=== PATIENT | male | born 1975 | race Caucasian/White ===

== ENCOUNTER 2018-08-25 16:32 | Inpatient (IN) | payer OTHER ==
[~2018-08-25] VITALS: Ht 170.2 cm; Wt 67.9 kg
[~2018-08-25 16:32] MED LIST: ANTIDIARRHEAL PO; CHOLESTEROL MED PO
[2018-08-25] MEDS ORDERED: ACETAMINOPHEN 325 MG TAB PO PRN ×2 (17:00→19:00)
[2018-08-25] MEDS ORDERED: ONDANSETRON 4 MG INJ IV PRN ×2 (17:00→19:00)
--- NOTE | 2018-08-25 18:38 | HP ---
Date/Time of Note Date/Time of Note DATE: 08/25/18 TIME: 18:31 Assessment/Plan VTE Prophylaxis SCD applied (from Nsg): Yes Pharmacological prophylaxis: NA/contraindicated Pharm contraindication: bleeding Assessment/Plan Hospital Course 1. Colitis secondary to IBD Patient with a reported history of ulcerative colitis, patient stopped taking his medications 6 months ago reportedly after his insurance was changed IV steroids with methylprednisolone 20 mg IV every 8 hours GI consultation with Dr. Armando who has seen patient in the past Hemoglobin has been stable HPI/ROS Admit Date/Time Admit Date/Time August 25, 2018 Hx of Present Illness Patient is a 43-year-old male with a history of inflammatory bowel disease, likely UC. Patient does have a history of colonoscopy with a diagnosis of IBD. Patient was on medications for ulcerative colitis but states that his insurance was changed and that he was unable to obtain his medication. Patient reports that 2 months ago he began to have bloody diarrhea which became worse over the last several days. Patient reports having approximately 3 bloody bowel movements per day. Patient presented to an outside hospital where CT abdomen showed diffuse colitis, patient was transferred due to capitation. Patient's hemoglobin was stable at outside hospital. ROS Constitutional: no complaints, improved Eyes: no complaints ENT: no complaints Respiratory: no complaints Cardiovascular: no complaints Gastrointestinal: blood, diarrhea Genitourinary: no complaints Musculoskeletal: no complaints Skin: no complaints Neurologic: no complaints Endocrine: no complaints Lymphatic: no complaints Psychological: no complaints, nl mood/affect Immunologic: no complaints PMH/Family/Social Past Medical History Inflammatory bowel disease Medications Current Medications Ondansetron HCl (Zofran Inj) 4 mg BRIDGE ORDER PRN IV NAUSEA/VOMITING; Start 08/25/18 at 17:00; Stop 08/26/18 at 16:59 Acetaminophen (Tylenol Tab) 650 mg ER BRIDGE PRN PO .MILD PAIN 1-3 OR TEMP; Start 08/25/18 at 17:00; Stop 08/26/18 at 16:59 Coded Allergies: No Known Allergy (Unverified , 10/11/13) Past Surgical History Past Surgical Hx: no surgical history Family History Significant Family History: no pertinent family hx Social History Alcohol Use: rarely Smoking Status: Never smoker Drug Use: none Exam/Review of Systems Vital Signs Vitals Vital Signs Date Temp Pulse Resp B/P (MAP) Pulse Ox O2 O2 Flow FiO2 Time Delivery Rate 08/25/18 98.6 76 16 104/62 98 16:40 (76) Exam Constitutional: alert, oriented Respiratory: clear to auscultation Cardiovascular: regular rate and rhythm Gastrointestinal: soft; No distended Musculoskeletal: nl extremities to inspection BECCA NAPOLES August 25, 2018 18:38
[2018-08-25] MEDS ORDERED: ERGO500013 PO (18:43)
[2018-08-25] MEDS ORDERED: VIT E PO (18:45)
[2018-08-25] MEDS ORDERED: morphine 2 MG INJ IV PRN (19:00)
[2018-08-25] MEDS ORDERED: ZOLPIDEM 5 MG TAB PO PRN (19:00)
[2018-08-25] MEDS ORDERED: NACL 0.9% 3 ML SYG IV SCH (19:00)
[2018-08-25] MEDS ORDERED: HYDROCODONE/APAP (5/325) TAB PO PRN (19:00)
--- NOTE | 2018-08-25 19:08 | ERD ---
ER Documentation Chief Complaint Chief Complaint SENT FROM [facility]. DIRECT ADMIT NO BEDS. DX COLITIS HPI Patient is a 43-year-old male who presents for acute ulcerative colitis. The patient was diagnosed at [place] emergency department. He is capitated to [facility] and was accepted for admission by the panel team. He came to the emergency department here by ambulance because there is no medical surgical beds available. ROS All systems reviewed and are negative except as per history of present illness. Medications Home Meds Reported Medications [Vit E] No Conflict Check, 1 TAB PO DAILY 08/25/18 Ergocalciferol (Vitamin D2) (VITAMIN D2) 50,000 Unit Capsule, [address] UNIT PO Q MON, CAP 08/25/18 Discontinued Reported Medications [Cholesterol Med] No Conflict Check, PO 10/11/13 [Antidiarrheal] No Conflict Check, PO 10/11/13 Allergies Allergies: Coded Allergies: No Known Allergy (Unverified , 08/25/18) PMhx/Soc History of Surgery: Yes (RIGHT FACIAL FRACTURE SURGERY ) Anesthesia Reaction: No Hx Neurological Disorder: No Hx Respiratory Disorders: No Hx Cardiac Disorders: No Hx Psychiatric Problems: No Hx Miscellaneous Medical Probl: No Hx Alcohol Use: No Hx Substance Use: No Hx Tobacco Use: No Smoking Status: Never smoker FmHx Family History: No diabetes Physical Exam Vitals Vital Signs Date Temp Pulse Resp B/P (MAP) Pulse Ox O2 O2 Flow FiO2 Time Delivery Rate 08/25/18 98.6 76 16 104/62 98 16:40 (76) Physical Exam Const: No acute distress Head: Atraumatic Eyes: Normal Conjunctiva ENT: Normal External Ears, Nose and Mouth. Neck: Full range of motion. No meningismus. Resp: Clear to auscultation bilaterally Cardio: Regular rate and rhythm, no murmurs Abd: Abdominal pain Skin: No petechiae or rashes Back: No midline or flank tenderness Ext: No cyanosis, or edema Neur: Awake and alert Psych: Normal Mood and Affect Results 24 hrs Current Medications Medications Dose Sig/Adeola Start Time Status Last (Trade) Ordered Route PRN Stop Time Admin Dose Reason Admin Ondansetron 4 mg BRIDGE ORDER 08/25/18 HCl (Zofran PRN IV 17:00 08/26/18 Inj) NAUSEA/VOMITI 16:59 NG 650 mg ER BRIDGE 08/25/18 Acetaminophen PRN PO 17:00 08/26/18 (Tylenol .MILD PAIN 16:59 Tab) 1-3 OR TEMP Sodium 1,000 ml @ Q10H IV 08/25/18 Chloride 100 mls/hr 18:38 IV Flush 3 ml PER 08/25/18 (NS 3 ml) PROTOCOL IV 19:00 Ondansetron 4 mg Q6H PRN 08/25/18 HCl (Zofran IV 19:00 Inj) NAUSEA/VOMITI NG 650 mg Q6H PRN 08/25/18 Acetaminophen PO .PAIN 1-3 19:00 (Tylenol OR TEMP Tab) 1 tab Q6H PRN 08/25/18 Acetaminophen PO .MOD PAIN 19:00 / 4-6 Hydrocodone Bitart ([place] (5/325)) Morphine 2 mg Q4H PRN 08/25/18 Sulfate IV .SEVERE 19:00 (morphine) PAIN 7-10 Zolpidem 5 mg QHS PRN 08/25/18 Tartrate PO .INSOMNIA 19:00 (Ambien) 40 mg Q8 IV 08/25/18 Methylprednis 22:00 olone Sodium Succinate (Solu-Medrol) Procedures/MDM Patient is a 43-year-old male presents for acute ulcerative colitis. He was transferred to the emergency department because there were no beds available on the [facility] floor. He is capitated to our hospital. I spoke with the panel team for admission. They have [facility] accepted him and I do not not believe that he requires further work-up at this time. Departure Diagnosis: Primary Impression: Ulcerative colitis Ulcerative colitis location: unspecified ulcerative colitis location Digestive disease complication type: unspecified complication Qualified Codes: K51.919 - Ulcerative colitis, unspecified with unspecified complications Additional Impression: Abdominal pain Abdominal location: unspecified location Qualified Codes: R10.9 - Unspecified abdominal pain Condition: AZRA Kendrick MD August 25, 2018 19:08
[2018-08-25] MEDS: SOD CHLORIDE 0.9% 1,000 ML IV SCH ×2 (19:59→22:30)
[2018-08-25 21:50] VITALS: Ht 170.2 cm; Wt 67.9 kg
[2018-08-25 22:00] VITALS: BP 101/56; PULSE 79; RESP 18
[2018-08-25] MEDS: METHYLPREDNISOLONE 40 MG INJ IV SCH (22:30)
[2018-08-26 03:09] VITALS: BP 96/56; PULSE 60; RESP 16
[2018-08-26] MEDS: METHYLPREDNISOLONE 40 MG INJ IV SCH ×3 (05:44→21:24)
[2018-08-26] MEDS: SOD CHLORIDE 0.9% 1,000 ML IV SCH ×2 (07:15→18:58)
[2018-08-26 07:57] VITALS: BP 105/64; PULSE 61; RESP 18
--- NOTE | 2018-08-26 09:25 | CONS ---
Assessment/Plan Assessment/Plan Hospital Course (Demo Recall) Summary Assessment and Plan: Assessment: Colitis likely 2/2 to UC flare History of ulcerative colitis History of hyperplastic colon polyps Plan: Agree with Solu-Medrol 20 mg IV every 8 hours We will start mesalamine 800 mg p.o. 3 times daily We will additionally check ESR/CRP for baseline Start clear liquid diet Currently no plan for colonoscopy given known hx of IBD- pt was dx with UC- will need SB imaging at some point confirm UC vs Crohn's Further conditions based on clinical course Patient seen in collaboration with Dr. Armando CC: LIZZIE RAMANDO MD ; Consultation Date/Type/Reason Admit Date/Time August 25, 2018 Date of Consultation: August 26, 2018 Type of Consult GI Reason for Consultation UC flare Date/Time of Note DATE: 08/26/18 TIME: 08:45 Hx of Present Illness This is a 43-year-old male with past medical history of ulcerative colitis last colonoscopy was completed in 2017 at that time patient noted to have colon po lyps as well biopsies came back as hyperplastic. Who was seen in our clinic and started on mesalamine p.o. medication. However due to insurance changes patient was no longer able to follow-up and stopped taking medication about 6 to 7 months ago. He presented to [facility] with complaints of tenesmus and bloody diarrhea going up to 5-8 times per day and a noted 10 pound weight loss over the past 2 months.. There he had a CT abdomen pelvis with contrast which revealed diffuse colitis with possible areas in the severely inflamed area was noted to be in the cecum and ascending colon, cyst or small hemangioma in the tip of the right lobe of the liver. He was transferred to [facility] for insurance reasons. Here patient was started on IV steroids 20 mg every 8 hours. He is currently resting in bed states diarrhea has improved with less blood noted he currently complains of tenesmus and abdominal cramping. We will plan to restart mesalamine we will additionally order stool studies to rule out C. difficile versus other. Start patient on a clear liquid diet. Review of Systems: A 12 system, review was conducted and is negative except as noted in the HPI or here. Past Medical History Home Meds Reported Medications [Vit E] No Conflict Check, 1 TAB PO DAILY 08/25/18 Ergocalciferol (Vitamin D2) (VITAMIN D2) 50,000 Unit Capsule, 25904 UNIT PO Q MON, CAP 08/25/18 Discontinued Reported Medications [Cholesterol Med] No Conflict Check, PO 10/11/13 [Antidiarrheal] No Conflict Check, PO 10/11/13 Medications Current Medications Ondansetron HCl (Zofran Inj) 4 mg BRIDGE ORDER PRN IV NAUSEA/VOMITING; Start 08/25/18 at 17:00; Stop 08/26/18 at 16:59 Acetaminophen (Tylenol Tab) 650 mg ER BRIDGE PRN PO .MILD PAIN 1-3 OR TEMP; Start 08/25/18 at 17:00; Stop 08/26/18 at 16:59 Sodium Chloride 1,000 ml @ 100 mls/hr Q10H IV Last administered on 08/26/18at 07:15; Admin Dose 100 MLS/HR; Start 08/25/18 at 18:38 IV Flush (NS 3 ml) 3 ml PER PROTOCOL IV ; Start 08/25/18 at 19:00 Ondansetron HCl (Zofran Inj) 4 mg Q6H PRN IV NAUSEA/VOMITING; Start 08/25/18 at 19:00 Acetaminophen (Tylenol Tab) 650 mg Q6H PRN PO .PAIN 1-3 OR TEMP; Start 08/25/18 at 19:00 Acetaminophen/ Hydrocodone Bitart ([place] (5/325)) 1 tab Q6H PRN PO .MOD PAIN 4- 6; Start 08/25/18 at 19:00 Morphine Sulfate (morphine) 2 mg Q4H PRN IV .SEVERE PAIN 7-10; Start 08/25/18 at 19:00 Zolpidem Tartrate (Ambien) 5 mg QHS PRN PO .INSOMNIA; Start 08/25/18 at 19:00 Methylprednisolone Sodium Succinate (Solu-Medrol) 40 mg Q8 IV Last administered on 08/26/18at 05:44; Admin Dose 40 MG; Start 08/25/18 at 22:00 Allergies: Coded Allergies: No Known Allergy (Unverified , 08/25/18) Past Surgical History Past Surgical Hx: no surgical history Social History Alcohol Use: rarely Smoking Status: Former smoker Drug Use: none Exam/Review of Systems Exam Vitals Vital Signs Date Temp Pulse Resp B/P (MAP) Pulse Ox O2 O2 Flow FiO2 Time Delivery Rate 08/26/18 97.5 61 18 105/64 97 Room Air 07:57 (78) Exam PHYSICAL EXAMINATION: GENERAL: Alert & oriented x 3, in no acute distress SKIN: No lesions HEAD: Normocephalic, atraumatic, no tenderness. EYES: Pupils equal reactive to light and accommodation, no discharge. EARS/NOSE AND THROAT: Ears normal, nose normal. NECK: Supple, no masses, thyroid normal. CHEST: Inspection within normal limits. CARDIOVASCULAR: Heart: Regular rate and rhythm RESPIRATORY: Lungs clear to auscultation GASTROINTESTINAL AND LIVER: Abdomen: Soft, generalized tenderness, non- distended, no hernias, no masses, no organomegaly, no ascites, no guarding, no rebound tenderness, normoactive bowel sounds. Rectal: Deferred. EXTREMITIES: No cyanosis, clubbing or edema. Results Result Diagram: 08/26/18 0439 08/26/18 0439 Results 24hrs Laboratory Tests Test 08/26/18 04:39 White Blood Count 10.5 Red Blood Count 4.58 L Hemoglobin 12.7 L Hematocrit 39.1 L Mean Corpuscular Volume 85.4 Mean Corpuscular Hemoglobin 27.7 L Mean Corpuscular Hemoglobin Concent 32.5 Red Cell Distribution Width 13.8 Platelet Count 472 H Mean Platelet Volume 9.3 Immature Granulocytes % 0.400 Neutrophils % 84.8 H Lymphocytes % 12.5 L Monocytes % 2.2 Eosinophils % 0.0 Basophils % 0.1 Nucleated Red Blood Cells % 0.0 Immature Granulocytes # 0.040 H Neutrophils # 8.9 H Lymphocytes # 1.3 Monocytes # 0.2 L Eosinophils # 0.0 Basophils # 0.0 Nucleated Red Blood Cells # 0.0 Sodium Level 142 Potassium Level 4.8 Chloride Level 104 Carbon Dioxide Level 29 Anion Gap 9 Blood Urea Nitrogen 17 Creatinine 0.55 L Est Glomerular Filtrat Rate mL/min > 60 Glucose Level 139 Hemoglobin A1c 5.5 Calcium Level 9.4 Phosphorus Level 4.5 Magnesium Level 2.3 Medications Medication Current Medications Ondansetron HCl (Zofran Inj) 4 mg BRIDGE ORDER PRN IV NAUSEA/VOMITING; Start 08/25/18 at 17:00; Stop 08/26/18 at 16:59 Acetaminophen (Tylenol Tab) 650 mg ER BRIDGE PRN PO .MILD PAIN 1-3 OR TEMP; Start 08/25/18 at 17:00; Stop 08/26/18 at 16:59 Sodium Chloride 1,000 ml @ 100 mls/hr Q10H IV Last administered on 08/26/18at 07:15; Admin Dose 100 MLS/HR; Start 08/25/18 at 18:38 IV Flush (NS 3 ml) 3 ml PER PROTOCOL IV ; Start 08/25/18 at 19:00 Ondansetron HCl (Zofran Inj) 4 mg Q6H PRN IV NAUSEA/VOMITING; Start 08/25/18 at 19:00 Acetaminophen (Tylenol Tab) 650 mg Q6H PRN PO .PAIN 1-3 OR TEMP; Start 08/25/18 at 19:00 Acetaminophen/ Hydrocodone Bitart ([place] (5/325)) 1 tab Q6H PRN PO .MOD PAIN 4- 6; Start 08/25/18 at 19:00 Morphine Sulfate (morphine) 2 mg Q4H PRN IV .SEVERE PAIN 7-10; Start 08/25/18 at 19:00 Zolpidem Tartrate (Ambien) 5 mg QHS PRN PO .INSOMNIA; Start 08/25/18 at 19:00 Methylprednisolone Sodium Succinate (Solu-Medrol) 40 mg Q8 IV Last administered on 08/26/18at 05:44; Admin Dose 40 MG; Start 08/25/18 at 22:00 BERNAROD ANGULO August 26, 2018 08:55
[2018-08-26] MEDS: MESALAMINE (EC) 400 MG CAP PO SCH ×2 (12:17→21:24)
--- NOTE | 2018-08-26 14:04 | PN ---
Date/Time of Note Date/Time of Note DATE: 08/26/18 TIME: 14:01 Assessment/Plan VTE Prophylaxis Risk score (from Nsg)>0 risk: 1 Pharmacological prophylaxis: NA/contraindicated Pharm contraindication: low risk/ambulating Lines/Catheters IV Catheter Type (from Nrsg): Peripheral IV Assessment/Plan Hospital Course 1. Colitis secondary to IBD Patient with a reported history of ulcerative colitis, patient stopped taking his medications 6 months ago reportedly after his insurance was changed IV steroids with Solu-Medrol 20 mg IV every 8 hours GI consultation with Dr. Armando appreciated, patient restarted on mesalamine Hemoglobin has been stable assistant portfolio manager to arrange for mesalamine prior to DC Result Diagram: 08/26/18 0439 08/26/18 0439 Results 24hrs Laboratory Tests Test 08/26/18 03:00 08/26/18 04:39 08/26/18 06:00 Erythrocyte Sedimentation Rate 29.0 H White Blood Count 10.5 Red Blood Count 4.58 L Hemoglobin 12.7 L Hematocrit 39.1 L Mean Corpuscular Volume 85.4 Mean Corpuscular Hemoglobin 27.7 L Mean Corpuscular Hemoglobin Concent 32.5 Red Cell Distribution Width 13.8 Platelet Count 472 H Mean Platelet Volume 9.3 Immature Granulocytes % 0.400 Neutrophils % 84.8 H Lymphocytes % 12.5 L Monocytes % 2.2 Eosinophils % 0.0 Basophils % 0.1 Nucleated Red Blood Cells % 0.0 Immature Granulocytes # 0.040 H Neutrophils # 8.9 H Lymphocytes # 1.3 Monocytes # 0.2 L Eosinophils # 0.0 Basophils # 0.0 Nucleated Red Blood Cells # 0.0 Sodium Level 142 Potassium Level 4.8 Chloride Level 104 Carbon Dioxide Level 29 Anion Gap 9 Blood Urea Nitrogen 17 Creatinine 0.55 L Est Glomerular Filtrat Rate mL/min > 60 Glucose Level 139 Hemoglobin A1c 5.5 Calcium Level 9.4 Phosphorus Level 4.5 Magnesium Level 2.3 C-Reactive Protein 2.1 H Subjective 24 Hr Interval Summary Constitutional: no complaints Exam/Review of Systems Exam Vitals Vital Signs Date Temp Pulse Resp B/P (MAP) Pulse Ox O2 O2 Flow FiO2 Time Delivery Rate 08/26/18 97.5 61 18 105/64 97 Room Air 07:57 (78) Constitutional: alert, oriented Respiratory: clear to auscultation Cardiovascular: regular rate and rhythm Gastrointestinal: soft; No distended Musculoskeletal: nl extremities to inspection Results Results 24hrs Laboratory Tests Test 08/26/18 03:00 08/26/18 04:39 08/26/18 06:00 Erythrocyte Sedimentation Rate 29.0 H White Blood Count 10.5 Red Blood Count 4.58 L Hemoglobin 12.7 L Hematocrit 39.1 L Mean Corpuscular Volume 85.4 Mean Corpuscular Hemoglobin 27.7 L Mean Corpuscular Hemoglobin Concent 32.5 Red Cell Distribution Width 13.8 Platelet Count 472 H Mean Platelet Volume 9.3 Immature Granulocytes % 0.400 Neutrophils % 84.8 H Lymphocytes % 12.5 L Monocytes % 2.2 Eosinophils % 0.0 Basophils % 0.1 Nucleated Red Blood Cells % 0.0 Immature Granulocytes # 0.040 H Neutrophils # 8.9 H Lymphocytes # 1.3 Monocytes # 0.2 L Eosinophils # 0.0 Basophils # 0.0 Nucleated Red Blood Cells # 0.0 Sodium Level 142 Potassium Level 4.8 Chloride Level 104 Carbon Dioxide Level 29 Anion Gap 9 Blood Urea Nitrogen 17 Creatinine 0.55 L Est Glomerular Filtrat Rate mL/min > 60 Glucose Level 139 Hemoglobin A1c 5.5 Calcium Level 9.4 Phosphorus Level 4.5 Magnesium Level 2.3 C-Reactive Protein 2.1 H Medications Medication Current Medications Sodium Chloride 1,000 ml @ 100 mls/hr Q10H IV Last administered on 08/26/18at 0 7:15; Admin Dose 100 MLS/HR; Start 08/25/18 at 18:38 IV Flush (NS 3 ml) 3 ml PER PROTOCOL IV ; Start 08/25/18 at 19:00 Ondansetron HCl (Zofran Inj) 4 mg Q6H PRN IV NAUSEA/VOMITING; Start 08/25/18 at 19:00 Acetaminophen (Tylenol Tab) 650 mg Q6H PRN PO .PAIN 1-3 OR TEMP; Start 08/25/18 at 19:00 Acetaminophen/ Hydrocodone Bitart ([place] (5/325)) 1 tab Q6H PRN PO .MOD PAIN 4- 6; Start 08/25/18 at 19:00 Morphine Sulfate (morphine) 2 mg Q4H PRN IV .SEVERE PAIN 7-10; Start 08/25/18 at 19:00 Zolpidem Tartrate (Ambien) 5 mg QHS PRN PO .INSOMNIA; Start 08/25/18 at 19:00 Mesalamine (Delzicol Dr) 800 mg TID PO Last administered on 08/26/18at 12:17; Admin Dose 800 MG; Start 08/26/18 at 11:00 Methylprednisolone Sodium Succinate (Solu-Medrol) 20 mg Q8 IV ; Start 08/26/18 at 14:00 BECCA NAPOLES August 26, 2018 14:03
[2018-08-26 15:49] VITALS: BP 99/70; PULSE 66; RESP 18
[2018-08-26 19:44] VITALS: BP 103/56; PULSE 70; RESP 18
[2018-08-27 01:38] VITALS: BP 94/55; PULSE 60; RESP 18
[2018-08-27] MEDS: SOD CHLORIDE 0.9% 1,000 ML IV SCH (05:01)
[2018-08-27] MEDS: METHYLPREDNISOLONE 40 MG INJ IV SCH ×2 (05:31→13:19)
[2018-08-27 07:42] VITALS: BP 107/61; PULSE 58; RESP 18
[2018-08-27] MEDS: MESALAMINE (EC) 400 MG CAP PO SCH ×2 (09:05→13:18)
[2018-08-27] MEDS ORDERED: ASA400 PO (10:31)
--- NOTE | 2018-08-27 10:33 | PDOCDIS ---
Discharge Instructions CONDITION [id number] Patient Condition: [id number] Good HOME CARE INSTRUCTIONS: [id number] Diet Instructions: [id number] Regular ACTIVITY: [id number] Activity Restrictions: [id number] No Restrictions FOLLOW UP/APPOINTMENTS Follow-up Plan FOLLOW UP WITH YOUR PCP AND THERMODYNAMICS ENGINEER BECCA NAPOLES August 27, 2018 10:33
--- NOTE | 2018-08-27 13:00 | PN ---
Date/Time of Note Date/Time of Note DATE: 08/27/18 TIME: 12:54 Assessment/Plan VTE Prophylaxis Risk score (from Ns)>0 risk: 1 SCD applied (from Ns): Yes Pharmacological prophylaxis: NA/contraindicated Pharm contraindication: bleeding Lines/Catheters IV [facility]ter [facility] (from [facility]): Peripheral IV Assessment/Plan Assessment/Plan Assessment: Colitis likely 2/2 to UC flare History of ulcerative colitis History of hyperplastic colon polyps Plan: Advance diet to low residual -if tolerates diet can be discharged home on steroid taper Continue steroids Continue mesalamine 800 mg p.o. 3 times daily Currently no plan for colonoscopy given known hx of IBD- pt was dx with UC- will need SB imaging at some point confirm UC vs Crohn's Follow-up as an outpatient on Thursday, September 03 Patient seen in collaboration with Dr. Armando Subjective: Patient is feeling better today. No further blood or mucus in the stool. Patient had 2 bowel movements earlier this morning. Abdominal pain is improving in the left lower quadrant. Patient is tolerating clear liquid diet well. We will advance the diet to regular. Patient will continue on mesalamine. Follow- up appointment is scheduled with Dr. Armando on September 03. Exam PHYSICAL EXAMINATION: GENERAL: Alert & oriented x 3, in no acute distress SKIN: No lesions HEAD: Normocephalic, atraumatic, no tenderness. EYES: Pupils equal reactive to light and accommodation, no discharge. EARS/NOSE AND THROAT: Ears normal, nose normal. NECK: Supple, no masses, thyroid normal. CHEST: Inspection within normal limits. CARDIOVASCULAR: Heart: Regular rate and rhythm RESPIRATORY: Lungs clear to auscultation GASTROINTESTINAL AND LIVER: Abdomen: Soft, generalized tenderness, non- distended, no hernias, no masses, no organomegaly, no ascites, no guarding, no rebound tenderness, normoactive bowel sounds. Rectal: Deferred. EXTREMITIES: No cyanosis, clubbing or edema. Result Diagram: 08/27/18 0437 08/27/18436 Results 24hrs Laboratory Tests Test 08/27/18 04:37 White Blood Count 15.6 #H Red Blood Count 4.34 L Hemoglobin 12.0 L Hematocrit 37.3 L Mean Corpuscular Volume 85.9 Mean Corpuscular Hemoglobin 27.6 L Mean Corpuscular Hemoglobin Concent 32.2 Red Cell Distribution Width 14.0 Platelet Count 444 H Mean Platelet Volume 9.8 Immature Granulocytes % 0.600 H Neutrophils % 86.5 H Lymphocytes % 8.7 L Monocytes % 4.1 Eosinophils % 0.0 Basophils % 0.1 Nucleated Red Blood Cells % 0.0 Immature Granulocytes # 0.090 H Neutrophils # 13.5 H Lymphocytes # 1.4 Monocytes # 0.6 Eosinophils # 0.0 Basophils # 0.0 Nucleated Red Blood Cells # 0.0 Sodium Level 142 Potassium Level 4.6 Chloride Level 105 Carbon Dioxide Level 30 Anion Gap 7 Blood Urea Nitrogen 13 Creatinine 0.53 L Est Glomerular Filtrat Rate mL/min > 60 Glucose Level 136 Calcium Level 9.1 Total Bilirubin 0.3 Direct Bilirubin 0.00 Indirect Bilirubin 0.3 Aspartate Amino Transf (AST/SGOT) 18 Alanine Aminotransferase (ALT/SGPT) 13 Alkaline Phosphatase 60 Total Protein 6.9 Albumin 3.7 Globulin 3.20 Albumin/Globulin Ratio 1.15 CC: LIZZIE ARMANDO MD ; Exam/Review of Systems Exam Vitals Vital Signs Date Temp Pulse Resp B/P (MAP) Pulse Ox O2 O2 Flow FiO2 Time Delivery Rate 08/27/18 97.8 58 18 107/61 98 07:42 (76) 08/26/18 Room Air 15:49 Intake and Output 08/26/18 08/26/18 08/27/18 1515:00 23:00 07:00 IntakeIntake Total 1600 ml 1840 ml 1000 ml BalanceBalance 1600 ml 1840 ml 1000 ml Results Results 24hrs Laboratory Tests Test 08/27/18 04:37 White Blood Count 15.6 #H Red Blood Count 4.34 L Hemoglobin 12.0 L Hematocrit 37.3 L Mean Corpuscular Volume 85.9 Mean Corpuscular Hemoglobin 27.6 L Mean Corpuscular Hemoglobin Concent 32.2 Red Cell Distribution Width 14.0 Platelet Count 444 H Mean Platelet Volume 9.8 Immature Granulocytes % 0.600 H Neutrophils % 86.5 H Lymphocytes % 8.7 L Monocytes % 4.1 Eosinophils % 0.0 Basophils % 0.1 Nucleated Red Blood Cells % 0.0 Immature Granulocytes # 0.090 H Neutrophils # 13.5 H Lymphocytes # 1.4 Monocytes # 0.6 Eosinophils # 0.0 Basophils # 0.0 Nucleated Red Blood Cells # 0.0 Sodium Level 142 Potassium Level 4.6 Chloride Level 105 Carbon Dioxide Level 30 Anion Gap 7 Blood Urea Nitrogen 13 Creatinine 0.53 L Est Glomerular Filtrat Rate mL/min > 60 Glucose Level 136 Calcium Level 9.1 Total Bilirubin 0.3 Direct Bilirubin 0.00 Indirect Bilirubin 0.3 Aspartate Amino Transf (AST/SGOT) 18 Alanine Aminotransferase (ALT/SGPT) 13 Alkaline Phosphatase 60 Total Protein 6.9 Albumin 3.7 Globulin 3.20 Albumin/Globulin Ratio 1.15 Medications Medication Current Medications Sodium Chloride 1,000 ml @ 100 mls/hr Q10H IV Last administered on 08/27/18 05:01; Admin Dose 100 MLS/HR; Start 08/25/18 at 18:38 IV Flush (NS 3 ml) 3 ml PER PROTOCOL IV ; Start 08/25/18 at 19:00 Ondansetron HCl (Zofran Inj) 4 mg Q6H PRN IV NAUSEA/VOMITING; Start 08/25/18 at 19:00 Acetaminophen (Tylenol Tab) 650 mg Q6H PRN PO .PAIN 1-3 OR TEMP; Start 08/25/18 at 19:00 Acetaminophen/ Hydrocodone Bitart ([place] (5/325)) 1 tab Q6H PRN PO .MOD PAIN 4- 6; Start 08/25/18 at 19:00 Morphine Sulfate (morphine) 2 mg Q4H PRN IV .SEVERE PAIN 7-10 Last administered on 08/27/18at 11:25; Admin Dose 2 MG; Start 08/25/18 at 19:00 Zolpidem Tartrate (Ambien) 5 mg QHS PRN PO .INSOMNIA; Start 08/25/18 at 19:00 Mesalamine (Delzicol Dr) 800 mg TID PO Last administered on 08/27/18at 09:05; Admin Dose 800 MG; Start 08/26/18 at 11:00 Methylprednisolone Sodium Succinate (Solu-Medrol) 20 mg Q8 IV Last administered on 08/27/18at 05:31; Admin Dose 20 MG; Start 08/26/18 at 14:00 MONTY CHEEMA NP August 27, 2018 13:00
--- NOTE | 2018-08-27 13:41 | DS ---
Date/Time of Note Date/Time of Note DATE: 08/27/18 TIME: 13:38 Discharge Summary Admission/Discharge Info Admit Date/Time August 25, 2018 at 16:48 Discharge Date/Time August 27, 2018 Discharge Diagnosis 1. Colitis secondary to IBD Patient with a reported history of ulcerative colitis, patient stopped taking his medications 6 months ago reportedly after his insurance was changed Status post IV steroids with Solu-Medrol 20 mg IV every 8 hours GI consultation with Dr. Armando appreciated, patient restarted on mesalamine Hemoglobin has been stable national facilities manager to arrange for mesalamine prior to DC Patient Condition: Good Hospital Course Patient is a 43-year-old male with a history of inflammatory bowel disease, likely UC. Patient does have a history of colonoscopy with a diagnosis of IBD. Patient was on medications for ulcerative colitis but states that his insurance was changed and that he was unable to obtain his medication for the past 4 months. Patient reports that 2 months ago he began to have bloody diarrhea which became progressively worse. Patient was started on IV steroids as well as mesalamine. Patient was seen by GI recommendation was to continue mesalamine and follow-up as an outpatient. Of note further work-up needs to be done to confirm UC over Crohn's but this will be done as an outpatient. national facilities manager to arrange for mesalamine prior to DC, on the day of discharge patient's vitals, labs and physical exam are stable. Home Meds Active Scripts Mesalamine (Delzicol) 400 Mg Cap.drtab., 800 MG PO TID, #90 TAB 1 Refill Prov:BECCA NAPOLES 08/27/18 Reported Medications [Vit E] No Conflict Check, 1 TAB PO DAILY 08/25/18 Ergocalciferol (Vitamin D2) (VITAMIN D2) 50,000 Unit Capsule, 12551 UNIT PO Q MON, CAP 08/25/18 Discontinued Reported Medications [Cholesterol Med] No Conflict Check, PO 10/11/13 [Antidiarrheal] No Conflict Check, PO 10/11/13 Follow-up Plan FOLLOW UP WITH YOUR PCP AND NEGOTIATOR Primary Care Provider Not On Staff Doctor Time spent on discharge: > 30 minutes BECCA NAPOLES August 27, 2018 13:41
[2018-08-27] MEDS ORDERED: MED4DP PO (13:50)
[2018-08-27 14:05] VITALS: BP 103/63; PULSE 70; RESP 18
== END 2018-08-27 17:45 | disposition home or self-care (01) | DRG 387 ==
LOC: E/R 16:32 → 2NE 16:48
PROVIDERS: ADMIT Internal Medicine; ATTEND Internal Medicine
DX: K51.90 Ulcerative colitis, unspecified, without complications (principal); T47.8X6A Underdosing of other agents primarily affecting gastrointestinal system, initial encounter; Z91.128 Patient's intentional underdosing of medication regimen for other reason; Z87.19 Personal history of other diseases of the digestive system
CPT/HCPCS: 80048; 80053; 83036; 83735; 84100; 85025; 85651; 86140; 87045; 87075; 87205; J2270; J2920; J7030

== ENCOUNTER 2018-10-12 13:25 | Day surgery (SDC) | payer OTHER ==
[~2018-10-12] VITALS: Ht 167.6 cm; Wt 69.8 kg
[~2018-10-12 13:25] MED LIST changes: -ANTIDIARRHEAL PO; +ASA400 PO; -CHOLESTEROL MED PO; +ERGO500013 PO; +MED4DP PO; +VIT E PO
[2018-10-12 16:40] VITALS: Ht 167.6 cm; Wt 69.8 kg
--- NOTE | 2018-10-12 16:55 | PREAC ---
Date/Time of Note Date/Time of Note DATE: 10/12/18 TIME: 16:53 Anesthesia Eval and Record Evaluation Time Pre-Procedure Interview DATE: 10/12/18 TIME: 16:53 Age 43 Sex male NPO: 8 hrs Preoperative diagnosis ulcerative proctitis Planned procedure colonoscopy Past Medical History Past Medical History: Includes Pulm: Smoking Hx Surgery & Anesthesia Issues No known issue Meds Anticoagulation: No Beta Franck within 24 hr: No Reason Beta Franck not given: Pt. not on B-Franck Active Scripts Methylprednisolone* (Medrol* DOSE PACK) 4 Mg/Dose-Pack Tab.ds.pk, 4 MG PO . DIRECTED, #1 PACKET Prov:BECCA NAPOLES 08/27/18 Mesalamine (Delzicol) 400 Mg Cap.drtab., 800 MG PO TID, #90 TAB 1 Refill Prov:YESIKABECCA 08/27/18 Reported Medications [Vit E] No Conflict Check, 1 TAB PO DAILY 08/25/18 Ergocalciferol (Vitamin D2) (VITAMIN D2) 50,000 Unit Capsule, 88286 UNIT PO Q MON, CAP 08/25/18 Meds reviewed: Yes Allergies Coded Allergies: No Known Allergy (Unverified , 08/25/18) Allergies Reviewed: Yes Labs/Studies Labs Reviewed: Other (NA) test: N/A Pre-procedure Exam Airway: Adequate mouth opening Mallampati: Mallampati II Teeth: Normal Lung: Normal Heart: Normal ASA Physical Status ASA physical status: 2 Emergency: None Pre-operative Attestations Prior to commencing anesthesia and surgery, the patient was re-evaluated, there was verification of: *The patient's identity *The results of appropriate recent lab work and preoperative vital signs *The above evaluation not changing prior to induction *Anesthetic plan, risk benefits, alternative and complications discussed with patient/family; questions answered; patient/family understands, accepts and wishes to proceed. TONY SEXTON Oct 12, 2018 16:55
[2018-10-12 17:04] VITALS: BP 145/88; PULSE 67; RESP 16
[2018-10-12] MEDS ORDERED: LIDOCAINE 2% (SDV) 5 ML INJ ONE (17:31)
[2018-10-12] MEDS ORDERED: PROPOFOL 40 ML ONE (17:31)
--- NOTE | 2018-10-12 17:57 | PAC ---
Date/Time of Note Date/Time of Note DATE: 10/12/18 TIME: 17:57 Post-Anesthesia Notes Post-Anesthesia Note Last documented vital signs Vital Signs Date Temp Pulse Resp B/P (MAP) Pulse Ox O2 O2 Flow FiO2 Time Delivery Rate 10/12/18 67 16 145/88 99 17:04 (107) Activity: WNL Respiratory function: WNL Cardiovascular function: WNL Mental status: Baseline Pain reasonably controlled: Yes Hydration appropriate: Yes Nausea/Vomiting absent: Yes Chet Brown M.D. Oct 12, 2018 17:57
[2018-10-12 18:25] VITALS: BP 106/82; PULSE 63; RESP 13
== END 2018-10-12 20:19 | disposition home or self-care (01) ==
LOC: GIL 13:25
PROVIDERS: ATTEND Internal Medicine Gastroenterology
DX: K51.90 Ulcerative colitis, unspecified, without complications (principal); K64.8 Other hemorrhoids
CPT/HCPCS: 88305